=== PATIENT | male | born 1990 | race Caucasian/White ===

== ENCOUNTER 2023-01-03 09:49 | Emergency (ER) | payer OTHER ==
[~2023-01-03] VITALS: Ht 188 cm; Wt 64.4 kg
[~2023-01-03 09:49] MED LIST: AMOCLA400 PO; CEPH250A PO; CODACE30 PO; HYDACE5 PO; MUPI2TC TOP; RXCODACET PO; RXHYDACE PO; SULTRIDS PO; SULTRISS PO
[2023-01-03] MEDS ORDERED: OXYC5 PO (11:39)
[2023-01-03] MEDS ORDERED: ONDA4ODT MM (11:39)
[2023-01-03 12:00] VITALS: BP 109/72
== END 2023-01-03 12:05 | disposition home or self-care (01) ==
LOC: ER 09:49
DX: G89.18 Other acute postprocedural pain (principal)
CPT/HCPCS: 76870; A9270

== ENCOUNTER 2025-01-01 18:59 | Emergency (ER) | payer OTHER ==
[~2025-01-01] VITALS: Ht 188 cm; Wt 65.8 kg
[~2025-01-01 18:59] MED LIST changes: +OMEPRAZOLE MAGN20 MG PO; +ONDA4ODT MM; +ONDA4ODT SL; +OXYC5 PO
[2025-01-01 19:34] VITALS: BP 122/70
== END 2025-01-01 22:33 | disposition home or self-care (01) ==
LOC: ER 18:59
DX: S61.412A Laceration without foreign body of left hand, initial encounter (principal); W25.XXXA Contact with sharp glass, initial encounter
CPT/HCPCS: 12001; 99282-25